=== PATIENT | female | born 1990 | race Caucasian/White ===

== ENCOUNTER 2023-06-15 15:23 | Emergency (ER) | payer MEDICAID ==
[~2023-06-15] VITALS: Ht 167.6 cm; Wt 54.9 kg
[2023-06-15] MEDS ORDERED: IPRATROPIUM NEB FS 0.5 MG/2.5 ML AMPUL.NEB ONE (16:47)
[2023-06-15] MEDS ORDERED: ALBUTEROL FS 2.5 MG/3 ML VIAL.NEB ONE (16:47)
[2023-06-15 16:53] VITALS: O2SAT 98
[2023-06-15] MEDS: IPRATROPIUM NEB FS 0.5 MG/2.5 ML AMPUL.NEB NEB ONE (16:53)
[2023-06-15] MEDS: ALBUTEROL FS 2.5 MG/3 ML VIAL.NEB NEB ONE (16:53)
[2023-06-15 17:08] VITALS: O2SAT 98
[2023-06-15] MEDS ORDERED: ALBU18HF2 INH (17:40)
[2023-06-15] MEDS ORDERED: AZIT250T13 PO (18:00)
[2023-06-15 18:32] VITALS: BP 104/62; TEMP 98.7; O2SAT 100
== END 2023-06-15 18:37 | disposition home or self-care (01) ==
LOC: ER 15:30
DX: R05.9 Cough, unspecified (principal); R06.02 Shortness of breath; Z79.899 Other long term (current) drug therapy; Z20.822 Contact with and (suspected) exposure to COVID-19
CPT/HCPCS: 71045-TC

== ENCOUNTER 2023-09-27 11:59 | Emergency (ER) | payer MEDICAID ==
[~2023-09-27] VITALS: Ht 167.6 cm; Wt 56.7 kg
[~2023-09-27 11:59] MED LIST: ALBU18HF2 INH; AZIT250T13 PO
[2023-09-27] MEDS ORDERED: KETOROLAC TROMETHAMINE INJ 30 MG/ML VIAL ONE (14:18)
[2023-09-27] MEDS ORDERED: BACLOFEN (10 MG) 10 MG TABLET ONE (14:18)
[2023-09-27] MEDS: KETOROLAC TROMETHAMINE INJ 30 MG/ML VIAL IM ONE (14:33)
[2023-09-27] MEDS: BACLOFEN (10 MG) 10 MG TABLET PO ONE (14:34)
[2023-09-27] MEDS ORDERED: KETO10TA2 PO (15:29)
[2023-09-27] MEDS ORDERED: BACL5TAB PO (15:29)
[2023-09-27 15:40] LABS: PREGNANCY TEST URINE QUAL NEGATIVE (NEGATIVE)
[2023-09-27 15:46] VITALS: BP 110/80; TEMP 98.3; O2SAT 98
== END 2023-09-27 15:47 | disposition home or self-care (01) ==
LOC: ER 11:59
DX: M51.37 Other intervertebral disc degeneration, lumbosacral region (principal)
CPT/HCPCS: 99284; 96372; 72110; 72220; 84703; J1885

== ENCOUNTER 2024-06-25 11:09 | Emergency (ER) | payer MEDICAID ==
[~2024-06-25] VITALS: Ht 167.6 cm; Wt 58.5 kg
[~2024-06-25 11:09] MED LIST changes: +BACL5TAB PO; +KETO10TA2 PO
[2024-06-25] MEDS: IV NS 0.9% 1,000 ML BAG IV ONE (11:49)
[2024-06-25 12:04] LABS: MEAN CORPUSCULAR HEMOGLOBIN 31 PG (26.0-33.0)
[2024-06-25 12:10] LABS: CALCIUM, SERUM 9.3 mg/dL (8.5-10.1); CREATININE 0.5 mg/dL (0.6-1.3); POTASSIUM 3.9 mmol/L (3.5-5.1)
[2024-06-25 12:16] LABS: INR 0.97 (0.91-1.10); PARTIAL THROMBOPLASTIN TIME 29.6 SEC (24.3-34.3); PROTHROMBIN TIME 10.3 SECS (9.2-11.1)
[2024-06-25 12:19] LABS: BASOPHILS % (AUTO) 0.2 % (0.0-2.0); EOSINOPHILS # (AUTO) 0.1 K/uL (0.0-0.7); EOSINOPHILS % (AUTO) 0.8 % (0.0-6.0); HEMATOCRIT 41 % (33-45); HEMOGLOBIN 14.2 g/dL (11.5-14.8); LYMPHOCYTES # (AUTO) 1.6 K/uL (0.8-4.8); LYMPHOCYTES % (AUTO) 17.9 % (20.0-44.0); MEAN CORPUSCULAR HGB CONC 35 g/dl (31.0-36.0); MEAN CORPUSCULAR VOLUME 90 fL (82-100); MONOCYTES # (AUTO) 0.6 K/uL (0.1-1.30); MONOCYTES % (AUTO) 6.6 % (2.0-12.0); NEUTROPHILS # (AUTO) 6.8 K/uL (1.8-8.9); NEUTROPHILS % (AUTO) 74.5 % (43.0-81.0); PLATELET COUNT (AUTO) 300 K/uL (150-450); RED BLOOD CELL COUNT(AUTO) 4.57 MIL/uL (4.0-5.2); RED CELL DISTRIBUTION WIDTH 13.6 % (11.5-15.0); WHITE BLOOD COUNT (AUTO) 9.2 K/uL (4.3-11.0)
[2024-06-25 12:32] LABS: APPEARANCE,URINE TURBID (CLEAR); BILIRUBIN,URINE NEGATIVE (NEGATIVE); BLOOD, URINE 3+ Ery/uL (NEGATIVE); COLOR,URINE YELLOW (YELLOW); KETONES,URINE NEGATIVE (NEGATIVE); LEUKOCYTE ESTERASE ,URINE NEGATIVE (NEGATIVE); NITRITE, URINE NEGATIVE (NEGATIVE); PROTEIN,URINE NEGATIVE (NEGATIVE); UGLUCOSE NEGATIVE (NEGATIVE); UROBILINOGEN,URINE 0.2 EU/dL (0.2)
[2024-06-25 13:14] LABS: ADD URINE CULTURE YES; BACTERIA,URINE None seen /HPF (None Seen); RBC,URINE 21-50 /HPF (0-2); SQUAMOUS EPITHELIAL CELL,UR Few /HPF (None Seen)
[2024-06-25] MEDS ORDERED: CEFP200T14 PO (13:45)
[2024-06-25 15:54] VITALS: BP 121/81; TEMP 97.7; O2SAT 100
== END 2024-06-25 13:30 | disposition home or self-care (01) ==
LOC: ER 11:12
DX: O20.9 Hemorrhage in early pregnancy, unspecified (principal); O23.31 Infections of other parts of urinary tract in pregnancy, first trimester; N39.0 Urinary tract infection, site not specified; R31.9 Hematuria, unspecified; R10.2 Pelvic and perineal pain; Z3A.08 8 weeks gestation of pregnancy
CPT/HCPCS: 99285; 96360; 76805; 85025; 80048; 87086; 81001; 36415; 85730; 84702; J7030